=== PATIENT | male | born 1955 | race Caucasian/White ===

== ENCOUNTER → 2017-07-09 | Outpatient (CLI) | payer BC ==
[~2017-07-09] MED LIST: MTF500T PO; PANT40TA2 PO; SITA25TA PO; TMSL.4C PO
[2017-07-09 20:25] LABS: ALANINE AMINOTRANSFERASE 58 U/L (0-55); ALBUMIN 4.7 GM/DL (3.2-4.5); ALKALINE PHOSPHATASE 31 U/L (40-136); BILIRUBIN,TOTAL 1.6 MG/DL (0.1-1.0); BUN/CREATININE RATIO 13; CALCIUM 9.4 MG/DL (8.5-10.1); CARBON DIOXIDE 17 MMOL/L (21-32); CHLORIDE 106 MMOL/L (98-107); GFR ESTIMATED > 60; GLUCOSE 108 MG/DL (70-105); POTASSIUM 4.4 MMOL/L (3.6-5.0); SODIUM 137 MMOL/L (135-145)
== END ==
LOC: CARD 09:11
PROVIDERS: ATTEND Nurse Practitioner Family
DX: R07.9 Chest pain, unspecified (principal); R53.81 Other malaise; M25.512 Pain in left shoulder; S00.461A Insect bite (nonvenomous) of right ear, initial encounter; W57.XXXA Bitten or stung by nonvenomous insect and other nonvenomous arthropods, initial encounter
CPT/HCPCS: 36415; 80053; 84484; 86618; 86666; 86668; 86757; 93005

== ENCOUNTER → 2017-07-10 | Outpatient (CLI) | payer BC ==
[2017-07-10 10:49] LABS: BASOPHILS % (AUTO) 1 % (0-10); EOSINOPHILS # (AUTO) 0.2 10^3/uL (0.0-0.3); EOSINOPHILS % (AUTO) 4 % (0-10); HEMATOCRIT 43 % (40-54); HEMOGLOBIN 14.8 G/DL (13.3-17.7); LYMPHOCYTES # (AUTO) 1.5 X 10^3 (1.0-4.0); LYMPHOCYTES % (AUTO) 25 % (12-44); MEAN CORPUSCULAR HEMOGLOBIN 30 PG (25-34); MEAN CORPUSCULAR HGB CONC 35 G/DL (32-36); MEAN CORPUSCULAR VOLUME 87 FL (80-99); MONOCYTES # (AUTO) 0.4 X 10^3 (0.0-1.0); MONOCYTES % (AUTO) 7 % (0-12); NEUTROPHILS # (AUTO) 3.9 X 10^3 (1.8-7.8); NEUTROPHILS % (AUTO) 64 % (42-75); PLATELET COUNT 209 10^3/uL (130-400); RED BLOOD COUNT 4.93 10^6/uL (4.35-5.85); RED CELL DISTRIBUTION WIDTH 14.2 % (10.0-14.5)
== END ==
LOC: LAB 08:00
PROVIDERS: ATTEND Nurse Practitioner Family
DX: R07.9 Chest pain, unspecified (principal); R53.81 Other malaise; M25.512 Pain in left shoulder
CPT/HCPCS: 85025

== ENCOUNTER → 2020-11-07 | Outpatient (CLI) | payer OTHER, BC ==
[~2020-11-07] VITALS: Ht 182.9 cm; Wt 95.5 kg
[~2020-11-07] MED LIST changes: +GADOBUTROL 7.5 MMOL/7.5 ML (GADAVIST) VIAL IV ONE; +IOHEXOL 300 MG/ML 50 ML (OMNIPAQUE 300) VIAL IV ONE
--- NOTE | 2020-11-07 14:29 | Diagnostic Imaging Report ---
EXAMINATION: Magnetic resonance imaging of the left shoulder with intra-articular contrast. DATE: November 07, 2020. COMPARISON: Left shoulder arthrogram November 07, 2020. HISTORY: 65-year-old male, left shoulder pain after lifting. TECHNIQUE: Magnetic Resonance Imaging sequences were performed of the shoulder with intra-articular contrast. FINDINGS: ROTATOR CUFF, LIGAMENTS, TENDONS, AND MUSCLES: There is a full thickness full width tear of the supraspinatus tendon with tendon retraction to the level of the superior humeral head measuring 2.0 cm. There is infraspinatus tendinopathy and tearing of the anterior aspect of infraspinatus tendon. The subscapularis and teres minor tendons are intact. There is normal rotator cuff muscle bulk and signal. LONG HEAD OF BICEPS: The proximal long head of the biceps tendon is not present in its intra-articular segment or in the bicipital groove. The proximal long head of the biceps tendon is likely torn and retracted below the level of the bicipital groove. GLENOHUMERAL JOINT: The humeral head is well positioned relative to the glenoid. The labrum is intact. There is no identified paralabral cyst. The articular cartilage is grossly intact. There is no identified intra-articular body or prominent synovitis. ACROMIOCLAVICULAR JOINT: The acromioclavicular joint is normally aligned. The coracoclavicular and coracoacromial ligaments are intact. There are mild acromioclavicular degenerative changes without large undersurface osteophyte. BONE: There is no os acromiale. There is no Hill-Sachs deformity. There is no acute fracture, bone contusion, or evidence of osteonecrosis. BURSAE AND SOFT TISSUES: There is contrast extension into the subacromial/subdeltoid bursa. IMPRESSION: 1. Full-thickness full width tear of the supraspinatus tendon with tendon retraction to the level of the superior humeral head with the tear extending into the anterior aspect of the infraspinatus. Infraspinatus tendinopathy. No fatty muscle atrophy. 2. Mild acromioclavicular degenerative changes without undersurface osteophyte. 3. Intact labrum and unremarkable additional glenohumeral joint assessment. 4. Tear of the proximal long head of the biceps tendon which is retracted below the level of the bicipital groove. 5. No acute fracture or bone contusion. Dictated by: Dictated on workstation # [id number]
== END ==
LOC: RAD 11:38
PROVIDERS: ATTEND Nurse Practitioner Family
DX: S46.112A Strain of muscle, fascia and tendon of long head of biceps, left arm, initial encounter (principal); M75.122 Complete rotator cuff tear or rupture of left shoulder, not specified as traumatic; M19.012 Primary osteoarthritis, left shoulder; X50.0XXA Overexertion from strenuous movement or load, initial encounter
CPT/HCPCS: 23350; 73040; 73222

== ENCOUNTER → 2021-01-08 | Outpatient (CLI) | payer BC ==
[~2021-01-08] MED LIST changes: -GADOBUTROL 7.5 MMOL/7.5 ML (GADAVIST) VIAL IV ONE; -IOHEXOL 300 MG/ML 50 ML (OMNIPAQUE 300) VIAL IV ONE
== END ==
LOC: CARD 10:30
PROVIDERS: ATTEND Urology
DX: N40.0 Benign prostatic hyperplasia without lower urinary tract symptoms (principal)
CPT/HCPCS: 93005

== ENCOUNTER → 2022-10-22 | Outpatient (CLI) | payer BC, MEDICARE, OTHER ==
--- NOTE | 2022-10-22 12:50 | Diagnostic Imaging Report ---
EXAMINATION: MRI RT UPPER EXT JOINT W/O. TECHNIQUE: Multiplanar, multisequence MR imaging of the right shoulder was performed without contrast. COMPARISON: None available. INDICATION: Right shoulder pain. FINDINGS: Rotator cuff: There is a near full-thickness bursal sided tear in the anterior aspect of the supraspinatus. The tear measures approximately 1.2 cm in width. Low-grade partial-thickness interstitial tear/delamination propagates more posteriorly into the remainder of the supraspinatus. Infraspinatus is intact with mild tendinopathy. Subscapularis and teres minor are normal. No rotator cuff muscle atrophy. Glenoid labrum: No chondrolabral separation or paralabral cyst. Long head of biceps: The intracapsular segment of the medial head of biceps is not well visualized. A split longitudinal tear is likely present in the extracapsular segment. Bones and cartilage: Humeral head is normal in morphology without fracture or focal osseous lesion. No glenohumeral chondromalacia. Moderate to severe hypertrophic osteoarthritis of the AC joint does exert mass effect on the cranial aspect of the supraspinous. Soft tissues: No glenohumeral joint effusion. No MRI findings to suggest adhesive capsulitis. No fluid or inflammatory like signal within the subacromial/subdeltoid space to indicate bursitis. IMPRESSION: 1. High-grade partial-thickness bursal sided tear of the supraspinatus. 2. Abnormal appearance of long head of biceps with at least a split longitudinal tear in the extracapsular segment. The intracapsular segment may also be torn. 3. 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 Dictated by: Dictated on workstation # [id number]
== END ==
LOC: RAD 07:39
PROVIDERS: ATTEND Orthopaedic Surgery
DX: S46.212S Strain of muscle, fascia and tendon of other parts of biceps, left arm, sequela (principal); M75.122 Complete rotator cuff tear or rupture of left shoulder, not specified as traumatic; M19.011 Primary osteoarthritis, right shoulder
CPT/HCPCS: 73221

== ENCOUNTER 2023-01-08 14:23 | Outpatient (RCR) | payer OTHER | END 2023-01-16 | disposition home or self-care (01) | PROVIDERS: ATTEND Orthopaedic Surgery | DX: M75.121 Complete rotator cuff tear or rupture of right shoulder, not specified as traumatic (principal); M75.41 Impingement syndrome of right shoulder; E11.9 Type 2 diabetes mellitus without complications ==